=== PATIENT | male | born 1985 | race Caucasian/White ===

== ENCOUNTER 2022-11-22 10:53 | Emergency (ER) | payer BC, SELFPAY ==
[2022-11-22] VITALS (14 sets, daily range): BP systolic 123–139; BP diastolic 85–99; PULSE 68–89; RESP 20; TEMP 36.6; O2SAT 96–98
--- NOTE | 2022-11-22 12:41 | CRLHL7_ITS ---
For Patients: As a result of the Century Cures Act, medical imaging exams and procedure reports are released immediately into your electronic medical record. You may view this report before your referring provider. If you have questions, please contact your health care provider. INDICATION: Short of breath. TECHNIQUE: Two view chest. FINDINGS: The lungs are clear. The heart, mediastinum and pulmonary vessels are of normal size. There is no evidence of pleural disease. IMPRESSION: Negative chest. Dictated by Elio Wiley MD @ 11/22/2022 1:14:23 PM (Electronically Signed)
[2022-11-22 13:12] LABS: Lactate* 1.4 mmol/L (0.5-1.9)
[2022-11-22 13:14] LABS: Basophils Absolute Auto 0.03 K/uL (0.00-0.30); Basophils Percent Auto 0.5 % (0.0-3.0); Eosinophils Absolute Auto 0.02 K/uL (0.00-0.50); Eosinophils Percent Auto 0.4 % (0.0-7.0); Hemoglobin* 16.3 gm/dL (13.5-17.5); Immature Granulocytes Abs Auto 0.01 K/uL (0.00-0.30); Immature Granulocytes Pct Auto 0.2 %; Lymphocytes Absolute Auto 1.37 K/uL (0.90-2.90); Lymphocytes Percent Auto 24.2 % (20-44); Mean Corpuscular HGB Conc 35 gm/dL (32-36); Mean Corpuscular Hemoglobin 30 pg (26-34); Mean Corpuscular Volume 86 fL (80-100); Monocytes Percent Auto 7.1 % (0.0-11.0); Neutrophils Absolute Auto 3.84 K/uL (1.7-7.0); Neutrophils Percent Auto 67.6 % (42.0-72.0); Platelet Count* 244 K/uL (140-440); RDW Coefficient of Variation % 12.7 % (11.5-15.5); Red Blood Count 5.44 m/uL (4.30-5.90); White Blood Count* 5.67 K/uL (4.50-11.00)
[2022-11-22 13:25] LABS: Albumin* 4.5 g/dL (3.3-5.0); Chloride* 111 mmol/L (96-114)
[2022-11-22 13:26] LABS: Potassium* 4.5 mmol/L (3.6-5.1); Sodium* 141 mmol/L (135-149)
[2022-11-22 13:28] LABS: Aspartate Amino Transferase* 24 U/L (12-35); Bilirubin Direct* 0.2 mg/dL (0.0-0.5); Bilirubin Total* 0.6 mg/dL (0.1-1.5); Carbon Dioxide* 22 mmol/L (20-32); Creatinine* 0.8 mg/dL (0.5-1.5); Estimated Glomerular Filt Rate 118 ml/min
[2022-11-22 13:29] LABS: Alanine Aminotransferase* 35 U/L (4-50); Alkaline Phosphatase* 71 U/L (40-150); Blood Urea Nitrogen* 7 mg/dL (5-24); Glucose* 90 mg/dL (60-115); Lipase* 120 U/L (23-300); Total Protein* 7.4 g/dL (6.0-8.3)
[2022-11-22 13:38] LABS: C Reactive Protein* < 0.5 mg/dL (0.5-1.0); Slide Review Reflex No
--- NOTE | 2022-11-22 13:38 | ED_ITS ---
HPI - General Adult General Chief complaint: Chest Pain Stated complaint: tightness in his chest Time Seen by Provider: 11/22/22 12:33 Source: patient Mode of arrival: ambulatory Limitations: no limitations History of Present Illness HPI narrative: 37-year-old male coming in today complaining of chest pressure. He describes it as a squeezing sensation of the center of his chest. It has been present for about a week and a half. It comes and goes, is not constant. It is not associated with physical activity. Sometimes he feels that at night before he goes to bed. Generally does not feel it when he wakes up 1st thing in the morning. It is not associated with eating. He denies diaphoresis, dizziness, nausea or vomiting when he feels this chest pressure. He has no personal history of heart disease but states that he has a maternal grandmother with a history of NM and uncertain age in the paternal grandmother with an NM in her 40s. He does vape nicotine, no tobacco use. He denies any personal history or family history of blood clots. He denies feeling short of breath. He denies any recent travel or surgery. He denies any palpitations. He does state that the last couple of weeks have been very stressful for him, he has some people staying at his home and he has been having trouble with bills. He does not exercise regularly. Related Data Home Medications Medication Instructions Recorded Confirmed No Known Home Medications 11/22/22 11/22/22 Allergies Allergy/AdvReac Type Severity Reaction Status Date / Time amoxicillin AdvReac Unverified 11/22/22 11:08 penicillin V AdvReac Unverified 11/22/22 11:08 Sulfa (Sulfonamide AdvReac Unverified 11/22/22 11:08 Antibiotics) Review of Systems Status of ROS: Reports: 10 or more systems reviewed and unremarkable except as noted in History and below Exam Narrative: Exam Narrative: Well-nourished well-developed patient in no acute distress. Alert and oriented. Answers questions appropriately. Mood and affect are appropriate. Thoughts are goal oriented and rational. No tangential or magical thinking noted. Patient speaks in full sentences without needing to catch their breath. Patient is currently pain free. HEENT: Normocephalic atraumatic. Pupils are equally round reactive to light. Extraocular muscles are intact. Conjunctivae are moist without any icterus noted. Moist mucous membranes. Posterior pharynx is normal. Neck is soft without any lymphadenopathy or thyromegaly. No masses are appreciated. Cardiovascular: Heart is regular rate and rhythm S1 and S2 are present without any murmurs. Lungs: Clear to auscultation bilaterally no wheezes rhonchi or rales are appreciated. Patient takes deep breaths without any discomfort. Abdomen: Soft and nontender nondistended with normal bowel sounds. No guarding or rebound. No masses or organomegaly appreciated. Extremities: Bilateral lower extremities are without edema. Normal DP and PT pulses. Skin: Well perfused without any obvious rashes. Const: Vital Signs, click to edit/add: Vital Signs - 24 hr 11/22/22 11:02 Temperature 97.9 F Pulse Rate [Pulse Oximeter] 89 Respiratory Rate 20 Blood Pressure [Ri ght Upper Arm] 136/85 Pulse Oximetry 97 Oxygen Delivery Me thod Room Air Course Course Hospital Course: Lab work was entirely normal. EKG, read by me, shows normal sinus rhythm. Repeat EKG unchanged. Serial troponins were 0. Chest x-ray, read by me, was normal. Vital Signs Vital signs: Initial Vital Signs Temperature 97.9 F 11/22/22 11:02 Temperature Source Temporal Artery Scan 11/22/22 11:02 Pulse Rate 89 11/22/22 11:02 Pulse Rhythm 11/22/22 11:02 Respiratory Rate 20 11/22/22 11:02 Blood Pressure 136/85 11/22/22 11:02 Blood Pressure Mean 102 11/22/22 11:02 Blood Pressure Position Sitting 11/22/22 11:02 Pulse Oximetry 97 11/22/22 11:02 Oxygen Delivery Method 11/22/22 11:02 Vital Signs Temperature 97.9 F 11/22/22 11:02 Pulse Rate 89 11/22/22 11:02 Respiratory Rate 20 11/22/22 11:02 Blood Pressure 136/85 11/22/22 11:02 Pulse Oximetry 97 11/22/22 11:02 Oxygen Delivery Method 11/22/22 11:02 Temperature 97.9 F 11/22/22 11:02 Pulse Rate 89 11/22/22 11:02 Respiratory Rate 20 11/22/22 11:02 Blood Pressure 136/85 11/22/22 11:02 Pulse Oximetry 97 11/22/22 11:02 Oxygen Delivery Method 11/22/22 11:02 Medical Decision Making MDM Narrative Medical decision making narrative: 37-year-old male with chest pressure. We discussed potential differential diagnoses including stable angina, reflux, stress, esophageal spasm, chest wall discomfort. At this time I think patient is safe to be discharged to follow up with primary care provider. Lab Data Lab results reviewed: Yes I reviewed the patient's lab results Labs: Lab Results 11/22/22 11/22/22 11/22/22 Range/Units 13:00 13:00 13:00 WBC 5.67 (4.50-11.00) K/uL RBC 5.44 (4.30-5.90) m/uL Hgb 16.3 (13.5-17.5) gm/dL Hct 47.0 (37.0-53.0) % MCV 86 (80-100) fL MCH 30 (26-34) pg MCHC 35 (32-36) gm/dL RDW Coeff of Mary [place] 12.7 (11.5-15.5) % Plt Count 244 (140-440) K/uL Neut % (Auto) 67.6 (42.0-72.0) % Lymph % (Auto) 24.2 (20-44) % [place] % (Auto) 7.1 (0.0-11.0) % Eos % (Auto) 0.4 (0.0-7.0) % Baso % (Auto) 0.5 (0.0-3.0) % Neut # (Auto) 3.84 (1.7-7.0) K/uL Lymph # (Auto) 1.37 (0.90-2.90) K/uL [place] # (Auto) 0.40 (0.00-0.90) K/UL Eos # (Auto) 0.02 (0.00-0.50) K/uL Baso # (Auto) 0.03 (0.00-0.30) K/uL Sodium 141 (135-149) mmol/L Potassium 4.5 (3.6-5.1) mmol/L Chloride 111 (96-114) mmol/L Carbon Dioxide 22 (20-32) mmol/L BUN 7 (5-24) mg/dL Creatinine 0.8 (0.5-1.5) mg/dL Estimated GFR 118 ml/min Glucose 90 (60-115) mg/dL Lactate 1.4 (0.5-1.9) mmol/L Calcium 9.0 (8.4-10.6) mg/dL Total Bilirubin 0.6 (0.1-1.5) mg/dL Direct Bilirubin 0.2 (0.0-0.5) mg/dL AST 24 (12-35) U/L ALT 35 (4-50) U/L Alkaline Phosphatase 71 (40-150) U/L C-Reactive Protein < 0.5 L (0.5-1.0) mg/dL Total Protein 7.4 (6.0-8.3) g/dL Albumin 4.5 (3.3-5.0) g/dL Lipase 120 (23-300) U/L POC Troponin I (0.01-0.04) ng/ml 11/22/22 11/22/22 Range/Units 13:00 14:38 WBC (4.50-11.00) K/uL RBC (4.30-5.90) m/uL Hgb (13.5-17.5) gm/dL Hct (37.0-53.0) % MCV (80-100) fL MCH (26-34) pg MCHC (32-36) gm/dL RDW Coeff of Mary Kate (11.5-15.5) % Plt Count (140-440) K/uL Neut % (Auto) (42.0-72.0) % Lymph % (Auto) (20-44) % [place] % (Auto) (0.0-11.0) % Eos % (Auto) (0.0-7.0) % Baso % (Auto) (0.0-3.0) % Neut # (Auto) (1.7-7.0) K/uL Lymph # (Auto) (0.90-2.90) K/uL [place] # (Auto) (0.00-0.90) K/UL Eos # (Auto) (0.00-0.50) K/uL Baso # (Auto) (0.00-0.30) K/uL Sodium (135-149) mmol/L Potassium (3.6-5.1) mmol/L Chloride (96-114) mmol/L Carbon Dioxide (20-32) mmol/L BUN (5-24) mg/dL Creatinine (0.5-1.5) mg/dL Estimated GFR ml/min Glucose (60-115) mg/dL Lactate (0.5-1.9) mmol/L Calcium (8.4-10.6) mg/dL Total Bilirubin (0.1-1.5) mg/dL Direct Bilirubin (0.0-0.5) mg/dL AST (12-35) U/L ALT (4-50) U/L Alkaline Phosphatase (40-150) U/L C-Reactive Protein (0.5-1.0) mg/dL Total Protein (6.0-8.3) g/dL Albumin (3.3-5.0) g/dL Lipase (23-300) U/L POC Troponin I 0.00 L 0.00 L (0.01-0.04) ng/ml Imaging Data Chest x-ray: Attestation: I have reviewed the pertinent imaging results. Radiologist's impression: TECHNIQUE: Two view chest. FINDINGS: The lungs are clear. The heart, mediastinum and pulmonary vessels are of normal size. There is no evidence of pleural disease. IMPRESSION: Negative chest. ECG Data Attestation: I personally reviewed and interpreted this ECG as follows: Discharge Plan Discharge Clinical Impression: Atypical chest pain Patient Disposition: Home, Self-Care Condition: Stable Additional Instructions: Recommend you follow-up with your primary care provider for further management. Prescriptions: No Action No Known Home Medications Follow Up/Referrals: Provider,Not a Local [Primary Care Provider] - Stand Alone Forms: [employer] Info Instructions
== END 2022-11-22 15:22 | disposition home or self-care (01) ==
PROVIDERS: Emergency Provider Family Medicine
DX: R07.89 Other chest pain (principal)
CPT/HCPCS: 36415; 71046; 80048; 80076; 83605; 83690; 84484; 85025; 86140; 93005; 99284; 99285

== ENCOUNTER 2023-08-28 13:05 | Emergency (ER) | payer BC, SELFPAY ==
[2023-08-28 13:11] VITALS: BP 126/79; PULSE 91; RESP 18; TEMP 36.9; O2SAT 96; BMI 37.3
--- NOTE | 2023-08-28 15:51 | ED.GENADULT ---
HPI - General Adult General Date Seen: 08/28/23 Chief complaint: Headache/Migraine Stated complaint: Reaction to medication--head/stomach pain Time Seen by Provider: 08/28/23 15:26 Source: patient Mode of arrival: ambulatory Limitations: no limitations History of Present Illness HPI narrative: Patient is a 37-year-old male presenting to the emergency department for abdominal pain and a headache. He states the abdominal pain been on a for the past week anything surgically to the [place] and omeprazole he started 3 weeks ago for her. The some epigastric him. He cannot take omeprazole today did not epigastric pain. Also associated headache. Denies having headaches previously but just a migraine brought in his family. States his eye today is the headache. Denies lightheadedness, dizziness, numbness,, abdominal pain, nausea vomiting, fevers, chills. Related Data Home Medications Medication Instructions Recorded Confirmed omeprazole 40 mg capsule,delayed 40 mg PO DAILY 08/28/23 08/28/23 release Allergies Allergy/AdvReac Type Severity Reaction Status Date / Time erythromycin base Allergy Unknown Verified 08/28/23 13:16 amoxicillin AdvReac Unverified 11/22/22 11:08 penicillin V AdvReac Unverified 11/22/22 11:08 Sulfa (Sulfonamide AdvReac Unverified 11/22/22 11:08 Antibiotics) Review of Systems Status of ROS: Reports: 10 or more systems reviewed and unremarkable except as noted in History and below [facility] Social History Smoking Status: Former smoker Do you use any of these nicotine containing products: Vaping Products How often do you have a drink containing alcohol: never AUDIT-C Alcohol total score: 0 Non-prescribed substance use: denies use Exam Narrative: Exam Narrative: Const: Well-nourished, Well-developed, in mild distress Eyes: PERRL, no conjunctival injection, and symmetrical lids HENT: Atraumatic external nose and ears. Moist mucous membranes. Neck: Symmetric, trachea midline, No thyromegaly. CVS: RRR, No murmurs or gallops. Peripheral pulses 2+ and equal in all extremities RESP: Unlabored respiratory effort. Clear to auscultation bilaterally. GI: Nontender/Nondistended, No rebound or guarding. MSK:Extremities w/o deformity, Normal Active ROM Skin: Warm, Dry. No rashes or lesions. Neuro: Normal Muscle tone, No focal neurological deficits. Psych: Awake, Alert, & Oriented x3. Appropriate mood and affect. Const: Vital Signs, click to edit/add: Vital Signs - 24 hr 08/28/23 13:11 Temperature 98.4 F Pulse Rate [Pulse Oximeter] 91 Respiratory Rate 18 Blood Pressure [Ri t Upper Arm] 126/79 Pulse Oximetry 96 Oxygen Delivery Me thod Room Air Course Vital Signs Vital signs: Initial Vital Signs Temperature 98.4 F 08/28/23 13:11 Temperature Source Temporal Artery Scan 08/28/23 13:11 Pulse Rate 91 08/28/23 13:11 Respiratory Rate 18 08/28/23 13:11 Blood Pressure 126/79 08/28/23 13:11 Blood Pressure Mean 94 08/28/23 13:11 Blood Pressure Position Sitting 08/28/23 13:11 Pulse Oximetry 96 08/28/23 13:11 Oxygen Delivery Method Room Air 08/28/23 13:11 Vital Signs Temperature 98.4 F 08/28/23 13:11 Pulse Rate 91 08/28/23 13:11 Respiratory Rate 18 08/28/23 13:11 Blood Pressure 126/79 08/28/23 13:11 Pulse Oximetry 96 08/28/23 13:11 Oxygen Delivery Method Room Air 08/28/23 13:11 Temperature 98.4 F 08/28/23 13:11 Pulse Rate 91 08/28/23 13:11 Respiratory Rate 18 08/28/23 13:11 Blood Pressure 126/79 08/28/23 13:11 Pulse Oximetry 96 08/28/23 13:11 Oxygen Delivery Method Room Air 08/28/23 13:11 Medications Administered Medications: Discontinued Medications Generic Name Dose Route Start Last Admin Trade Name Freq PRN Reason Stop Dose Admin Diphenhydramine HCl 25 mg 08/28/23 15:36 08/28/23 16:03 Diphenhydramine 50 Mg/Ml Inj IVP 08/28/23 15:37 25 mg ONCE ONE Administration Lactated Ringer's 1,000 mls @ 1,000 mls/hr 08/28/23 15:36 08/28/23 17:07 Lactated Ringers 1000 Ml IV 08/28/23 16:35 Infused .Q1H ONE Infusion Ketorolac Tromethamine 15 mg 08/28/23 15:36 08/28/23 16:02 Ketorolac 15 Mg/Ml Inj IVP 08/28/23 15:37 15 mg ONCE ONE Administration Metoclopramide HCl 10 mg 08/28/23 15:36 08/28/23 16:03 Metoclopramide Hcl 5 Mg/Ml Inj IVP 08/28/23 15:37 10 mg ONCE ONE Administration Medical Decision Making MDM Narrative Medical decision making narrative: Patient is a 37-year-old male presenting for epigastric pain and headache. The epigastric pain could be associated with pancreatitis, gastritis peptic ulcers, cholecystitis. He is not having any blood or blood in her stool culture seem unlikely. Paul late patient for pancreatitis and liver enzymes along with a CBC and BMP. His headache unlikely that she has necessitated this time as he looks otherwise well has no focal neurological deficits. It is not a severe headache according to have. He will be given a migraine cocktail. A migraine cocktail symptoms fall fully resolved and he feels completely back to normal. Laboratory shows no concerning abnormalities. COVID/flu is negative. Unsure exactly what is causing his symptoms but could be a viral syndrome. Does not appear to be any acute concerning abnormalities. He feels safe for discharge under discharge home. And I think is a month resolve those cause of the symptoms but told that he can hold off on taking the next few days to see symptoms come back or not Lab Data Labs: Lab Results 08/28/23 Range/Units 15:50 WBC 6.99 (4.50-11.00) K/uL RBC 5.53 (4.30-5.90) m/uL Hgb 16.6 (13.5-17.5) gm/dL Hct 48.6 (37.0-53.0) % MCV 88 (80-100) fL MCH 30 (26-34) pg MCHC 34 (32-36) gm/dL RDW Coeff of Mary Kate 12.7 (11.5-15.5) % Plt Count 260 (140-440) K/uL Neut % (Auto) 72.5 H (42.0-72.0) % Lymph % (Auto) 21.0 (20-44) % [place] % (Auto) 5.7 (0.0-11.0) % Eos % (Auto) 0.1 (0.0-7.0) % Baso % (Auto) 0.4 (0.0-3.0) % Neut # (Auto) 5.10 (1.7-7.0) K/uL Lymph # (Auto) 1.47 (0.90-2.90) K/uL [place] # (Auto) 0.40 (0.00-0.90) K/UL Eos # (Auto) 0.01 (0.00-0.50) K/uL Baso # (Auto) 0.03 (0.00-0.30) K/uL Abs Immat Gran (auto) 0.02 (0.00-0.30) K/uL Imm/Tot Granulo (auto) 0.3 % Sodium 142 (135-149) mmol/L Potassium 4.4 (3.6-5.1) mmol/L Chloride 106 (96-114) mmol/L Carbon Dioxide 23 (20-32) mmol/L Anion Gap 13 (7-15) mEq/L BUN 10 (5-24) mg/dL Creatinine 0.8 (0.5-1.5) mg/dL Estimated Creat Clear 123.50 Estimated GFR 118 ml/min Glucose 89 (60-115) mg/dL Calcium 9.6 (8.4-10.6) mg/dL Total Bilirubin 0.6 (0.1-1.5) mg/dL AST 27 (12-35) U/L ALT 46 (4-50) U/L Alkaline Phosphatase 73 (40-150) U/L Total Protein 8.1 (6.0-8.3) g/dL Albumin 5.0 (3.3-5.0) g/dL Lipase 109 (23-300) U/L SARS-CoV-2 (PCR) Negative SARS-CoV-2 (Negative) Influenza Type A (PCR) Negative PCR FLU A (Negative) Influenza Type B (PCR) Negative PCR FLU B (Negative) Discharge Plan Discharge Clinical Impression: Headache Qualifiers: Headache type: unspecified Headache chronicity pattern: acute headache Intractability: not intractable Qualified Code(s): R51.9 - Headache, unspecified Patient Disposition: Home, Self-Care Condition: Stable Instructions: Acute Headache (DC) Additional Instructions: Take ibuprofen for headache. Return to emergency department for new or worsening symptoms. If symptoms persist follow-up with your primary care provider Prescriptions: No Action omeprazole 40 mg capsule,delayed release(DR/EC) 40 mg PO DAILY Follow Up/Referrals: Luz Elena Pérez PA-C [Primary Care Provider] - Stand Alone Forms: [employer] Info Instructions
[2023-08-28 15:58] LABS: Basophils Absolute Auto 0.03 K/uL (0.00-0.30); Basophils Percent Auto 0.4 % (0.0-3.0); Eosinophils Absolute Auto 0.01 K/uL (0.00-0.50); Eosinophils Percent Auto 0.1 % (0.0-7.0); Hematocrit 48.6 % (37.0-53.0); Hemoglobin* 16.6 gm/dL (13.5-17.5); Immature Granulocytes Abs Auto 0.02 K/uL (0.00-0.30); Immature Granulocytes Pct Auto 0.3 %; Lymphocytes Absolute Auto 1.47 K/uL (0.90-2.90); Mean Corpuscular HGB Conc 34 gm/dL (32-36); Mean Corpuscular Hemoglobin 30 pg (26-34); Mean Corpuscular Volume 88 fL (80-100); Monocytes Percent Auto 5.7 % (0.0-11.0); Neutrophils Percent Auto 72.5 % (42.0-72.0); Platelet Count* 260 K/uL (140-440); RDW Coefficient of Variation % 12.7 % (11.5-15.5); Red Blood Count 5.53 m/uL (4.30-5.90); White Blood Count* 6.99 K/uL (4.50-11.00)
[2023-08-28] MEDS: KETOROLAC 15 MG/ML inj IVP (16:02)
[2023-08-28] MEDS: METOCLOPRAMIDE HCL 5 MG/ML INJ 10 MG IVP (16:03)
[2023-08-28] MEDS: LACTATED RINGERS 1000 ML 1,000 ML IV (16:03)
[2023-08-28] MEDS: diphenhydrAMINE 50 MG/ML inj 25 MG IVP (16:03)
[2023-08-28 16:08] LABS: Slide Review Reflex No
[2023-08-28 16:25] LABS: Chloride* 106 mmol/L (96-114)
[2023-08-28 16:26] LABS: Potassium* 4.4 mmol/L (3.6-5.1); Sodium* 142 mmol/L (135-149)
[2023-08-28 16:29] LABS: Alanine Aminotransferase* 46 U/L (4-50); Alkaline Phosphatase* 73 U/L (40-150); Anion Gap 13 mEq/L (7-15); Aspartate Amino Transferase* 27 U/L (12-35); Bilirubin Total* 0.6 mg/dL (0.1-1.5); Blood Urea Nitrogen* 10 mg/dL (5-24); Calcium* 9.6 mg/dL (8.4-10.6); Carbon Dioxide* 23 mmol/L (20-32); Creatinine* 0.8 mg/dL (0.5-1.5); Estimated Glomerular Filt Rate 118 ml/min; Glucose* 89 mg/dL (60-115); Lipase* 109 U/L (23-300); Total Protein* 8.1 g/dL (6.0-8.3)
[2023-08-28 16:42] LABS: PCR FLU A Negative PCR FLU A (Negative); PCR FLU B Negative PCR FLU B (Negative); SARS PCR* Negative SARS-CoV-2 (Negative)
== END 2023-08-28 17:23 | disposition home or self-care (01) ==
PROVIDERS: Emergency Provider Student in an Organized Health Care Education/Training Program; PCP Physician Assistant
DX: R51.9 Headache, unspecified (principal)
CPT/HCPCS: 36415; 80053; 83690; 85025; 87631; 96361; 96374; 96375; 99283; 99284; J1200; J1885; J2765; J7120

== ENCOUNTER 2023-09-08 08:48 | Emergency (ER) | payer BC, SELFPAY ==
[2023-09-08 08:59] VITALS: BP 142/88; PULSE 86; RESP 18; TEMP 37.1; O2SAT 97; BMI 37.3
--- NOTE | 2023-09-08 10:45 | ED.WEAKNESS ---
HPI - Weakness General Date Seen: 09/08/23 Chief complaint: Weakness Stated complaint: headache,neckpain,weakness in legs Time Seen by Provider: 09/08/23 09:10 Source: patient and family Mode of arrival: ambulatory Limitations: no limitations History of Present Illness HPI Narrative: Patient is a very nice 37-year-old gentleman who has been is feeling unwell for the last 2 and half weeks. Describes today at he had an episode at work, where he had bilateral numbness and tingling in both his lower extremities from his knees down. That is markedly improved in fact he does not endorse any symptoms currently. This lasted for approximately 1 hour, he has also had us headache, for about the whole 2 and half weeks, on off is been to the ER for this. Receive medications for headache, that improved but then return. He went saw his primary care physician, 5 days ago, and was started on omeprazole, for reflux, and also had a CT scan done, of his head, which she is able to show me which was otherwise normal. He was also placed under urgent care during this time. On doxycycline, and Reglan. Finished up the doxycycline yesterday, and never did get a prescription for the Reglan. Denies any significant chest pain although he has had a problem with reflux on off for approximately 3-4 months. Describes pressure in his chest, primarily when he works, does drink caffeinated beverages and does smoke a fair bit, it least a pack a day. This is a bit of contention between him and his who is here also. He is also under tremendous stress at work, which on discussion with them seems to be over riding thing here. Denies any use of alcohol and drugs, is open to seeing a psychologist however to help distress. No previous history of any heart disease for himself. His current medications as I know of. Are the omeprazole which he stopped approximately 1 week ago, doxycycline finished yesterday, Claritin which he was told to take [id number], Reglan which he never filled. Related Data Home Medications Medication Instructions Recorded Confirmed No Known Home Medications 09/08/23 09/08/23 Allergies Allergy/AdvReac Type Severity Reaction Status Date / Time erythromycin base Allergy Unknown Verified 09/08/23 09:03 amoxicillin AdvReac Verified 09/08/23 09:03 penicillin V AdvReac Verified 09/08/23 09:03 Sulfa (Sulfonamide AdvReac Verified 09/08/23 09:03 Antibiotics) Review of Systems Status of ROS: Reports: 10 or more systems reviewed and unremarkable except as noted in History and below Narrative: Patient has really nonspecific symptoms overall, feels very stressed. Neurological complaints of improved. [facility] Social History Smoking Status: Former smoker Do you use any of these nicotine containing products: Vaping Products How often do you have a drink containing alcohol: never AUDIT-C Alcohol total score: 0 Non-prescribed substance use: denies use Exam Narrative: Exam Narrative: Patient is speaking normally, no problem with slurring words, oriented x3. Head eyes ears nose and throat exam show equal pupils, no scleral icterus, extraocular muscles are normal, no facial droop, speech is normal, trachea normal and midline. Thyroid normal midline palpable not enlarged. Chest shows symmetrical rise bilaterally, normal auscultation with no wheezes, no increased work of breathing, no overt bruising or lesions seen, no tenderness is noted on auscultation. Heart sounds normal with no S3-S4 no murmurs clicks or gallops. Abdomen shows no obvious masses or hepatosplenomegaly, no organomegaly, bowel sounds are normal in all quadrants. No tenderness is noted also in all quadrants. Upper and lower extremities show normal power, normal range of motion, pulses are normal, sensations normal, fine motor movements are normal, pelvis is stable to rocking. Cervical spine shows normal range of motion, and palpably not tender. Thoracic spine shows normal range of motion, and palpably not tender, lumbar spine shows no tenderness to palpation percussion and is otherwise normal range of motion. Skin shows no rashes, petechiae or eccymosis. Patient is able to walk normally, no evidence of any lesions on his legs. Gait is assessed and normal no ataxia, Const: Vital Signs, click to edit/add: Vital Signs - 24 hr 09/08/23 08:59 Temperature 98.7 F Pulse Rate [Pulse Oximeter] 86 Respiratory Rate 18 Blood Pressure [Ri ght Upper Arm] 142/88 H Pulse Oximetry 97 Oxygen Delivery Me thod Room Air Documenting provider has reviewed patient's vital signs: yes Course Vital Signs Vital signs: Initial Vital Signs Temperature 98.7 F 09/08/23 08:59 Temperature Source Temporal Artery Scan 09/08/23 08:59 Pulse Rate 86 09/08/23 08:59 Pulse Rhythm Regular 09/08/23 08:59 Respiratory Rate 18 09/08/23 08:59 Blood Pressure 142/88 H 09/08/23 08:59 Blood Pressure Mean 106 H 09/08/23 08:59 Pulse Oximetry 97 09/08/23 08:59 Oxygen Delivery Method Room Air 09/08/23 08:59 Vital Signs Temperature 98.7 F 09/08/23 08:59 Pulse Rate 86 09/08/23 08:59 Respiratory Rate 18 09/08/23 08:59 Blood Pressure 142/88 H 09/08/23 08:59 Pulse Oximetry 97 09/08/23 08:59 Oxygen Delivery Method Room Air 09/08/23 08:59 Temperature 98.7 F 09/08/23 08:59 Pulse Rate 86 09/08/23 08:59 Respiratory Rate 18 09/08/23 08:59 Blood Pressure 142/88 H 09/08/23 08:59 Pulse Oximetry 97 09/08/23 08:59 Oxygen Delivery Method Room Air 09/08/23 08:59 MDM - Weakness MDM Narrative Medical decision making narrative: Life-threatening differential diagnosis considered include stroke, coronary artery disease, pneumonia, and heart failure. Other differential diagnosis include but are not limited to electrolyte imbalances, anemia, medication reactions, and urinary tract infection During this evaluation I considered multiple diagnosis he has ongoing problems, the most consistent diagnosis with also this is stress, with an anxiety reaction, I do not think that this is related to multiple sclerosis or other some bilateral neurological issue. I do not will do not think this is stroke related, his CT scan done noncontrast a few days ago. In reassuring. Did review his previous CBC and basic metabolic profile which was normal, I do not really think that this is related to some other obscure diagnosis such as myocardial infarction or pulmonary embolism. I do however think that this is related to his stress, with his headaches, increased use of caffeinated beverages. I explained to him that he will need follow-up for this I would restart the omeprazole probably 20 mg a day, follow-up in consideration of an EGD if ongoing symptoms. With primary care physician. I did try to call his primary care physician but she was unable to take my call. I also tried to get him in to psychology at his clinic, but they told me I was unable to get do that also. If he is worsening signs and symptoms he should come back, but overall I think he was happy, with this I will take him off work for the next 48 hours Medical Records Attestation: I reviewed the patient's medical records. Lab Data Attestation: I reviewed the patient's lab results. Discharge Plan Discharge Clinical Impression: Headache, Stress at work, Acid reflux, Numbness and tingling of both legs Patient Disposition: Home w/ Parent or Adult Condition: Stable Instructions: Diet for Stomach Ulcers and Gastritis (ED), GERD (Gastroesophageal Reflux Disease) (DC), Acute Headache (ED), Paresthesia (ED), Return to Work Instructions (ED), Upper Endoscopy (DC) Additional Instructions: Follow up appointment is scheduled at the [facility] on 09/15 with a 10:30am appointment time. Please arrive at 10:15am to check in. A psychiatric appointment was unable to be scheduled today, as Dr. Pérez will have to write a referral. If you have any questions or need to reschedule, please call [phone]. [facility] [address] [place] [address] As discussed with you we will keep a off work for the next 48 hours, I tried to make an appointment with says psychology for you for your stress and anxiety. Unfortunately I was unable to we did make an appointment with your primary care physician. Recommend decreasing smoking, but overall I feel lot of the current symptoms are related to the stress. Return here if increasing symptoms become unbearable, we are always open 24/7 Activity Level: Light activity Prescriptions: No Action No Known Home Medications Follow Up/Referrals: Luz Elena Pérez PA-C [Primary Care Provider] - Stand Alone Forms: [employer] Info Instructions
== END 2023-09-08 10:43 | disposition home or self-care (01) ==
PROVIDERS: Emergency Provider Family Medicine; PCP Physician Assistant
DX: K21.9 Gastro-esophageal reflux disease without esophagitis (principal); R20.0 Anesthesia of skin; R51.9 Headache, unspecified
CPT/HCPCS: 99284

== ENCOUNTER 2023-11-26 12:57 | Outpatient (CLI) | payer OTHER, SELFPAY | END 2023-11-26 12:58 | disposition home or self-care (01) | LOC: NFLDREF 12-08 20:53 | PROVIDERS: PCP Physician Assistant; Referring Provider Physician Assistant; Visit Provider Physician Assistant | DX: R07.9 Chest pain, unspecified (principal); R07.89 Other chest pain | CPT/HCPCS: 84484 ==